=== PATIENT | female | born 2000 | race Caucasian/White ===

== ENCOUNTER 2022-03-10 09:04 | Outpatient (CLI) | payer OTHER, SELFPAY ==
[2022-03-10 15:42] LABS: GC DNA Amplified* NOT DETECTED (No Detected)
[2022-03-10 15:59] LABS: Chlamydia DNA Amplified* DETECTED (No Detected)
== END 2022-03-10 09:05 | disposition home or self-care (01) ==
PROVIDERS: Visit Provider Registered Nurse
DX: R35.0 Frequency of micturition (principal); N91.2 Amenorrhea, unspecified; Z31.41 Encounter for fertility testing
CPT/HCPCS: 87086; 87491; 87591

== ENCOUNTER 2022-05-08 15:36 | Emergency (ER) | payer SELFPAY ==
[2022-05-08 15:39] VITALS: BP 119/77; PULSE 90; RESP 18; TEMP 36.2; O2SAT 100; BMI 28.1
[2022-05-08 16:14] LABS: Appearance Urine Cloudy (Clear); Bilirubin Urine Negative (Negative); Blood Urine Negative (Negative); Color Urine Yellow (Yellow); Glucose Urine Negative (Negative); Ketones Urine Negative (Negative); Leukocyte Esterase Urine Negative (Negative); Nitrite Urine Negative (Negative); Protein Urine Negative (Negative); Specific Gravity Urine >= 1.030 (1.000-1.030); Urobilinogen Urine 0.2 (0.2-1.0); pH Urine 5.5 (5.0-8.5)
--- NOTE | 2022-05-08 16:17 | ED_ITS ---
HPI - SOB/Dyspnea General Date Seen: 05/08/22 Chief Complaint: Shortness of Breath/Dyspnea Stated Complaint: Shortness of Breath, Vomiting Time Seen by Provider: 05/08/22 15:36 Source: patient and family Mode of arrival: ambulatory Limitations: no limitations History of Present Illness HPI Narrative: Patient is a 22-year-old female presents here with the shortness of breath and 3 episodes of vomiting last 24 hours, she says she feels like she is does not have her normal air, she has had no fevers no chills, but does feels weak otherwise. She has a past history of asthma but does not use an inhaler she is on no chronic medications she has no known allergies. Denies any leg swelling, feeling of faintness, chest pain, abdominal discomfort, dysuria frequency fevers chills, or any other issues. 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 Took some [id number] cold medicines but really nothing else. She presents here. elicited complaint: shortness of breath Pertinent past history: asthma Onset (ago): day(s) Treatment prior to arrival: none Related Data Home oxygen amount: none Previous Rx's Medication Instructions Recorded doxycycline monohydrate 100 mg 100 mg PO BID #14 tabs 03/10/22 tablet Allergies Allergy/AdvReac Type Severity Reaction Status Date / Time No Known Drug Allergies Allergy Verified 05/08/22 15:42 Review of Systems Status of ROS: Reports: 10 or more systems reviewed and unremarkable except as noted in History and below [facility] Medical History Back pain Epistaxis Menorrhagia with irregular cycle Family History Mother Ovarian cancer Social History Smoking Status: Never smoker Do you use any of these nicotine containing products: None How often do you have a drink containing alcohol: never AUDIT-C Alcohol total score: 0 Non-prescribed substance use: denies use service: No Exam Narrative: Exam Narrative: Patient is seen in room 4, she is speaking to me entirely in full sentences, appears to be not short of breath at all, with normal vital signs. Patient is speaking normally, no problem with slurring words, oriented x3. Head eyes ears nose and throat exam show equal pupils, no scleral icterus, extraocular muscles are normal, no facial droop, speech is normal, trachea normal and midline. Thyroid normal midline palpable not enlarged. Chest shows symmetrical rise bilaterally, normal auscultation with no wheezes, no increased work of breathing, no overt bruising or lesions seen, no tenderness is noted on auscultation. Heart sounds normal with no S3-S4 no murmurs clicks or gallops. Abdomen shows no obvious masses or hepatosplenomegaly, no organomegaly, bowel sounds are normal in all quadrants. No tenderness is noted also in all quadrants. Upper and lower extremities show normal power, normal range of motion, pulses are normal, sensations normal, fine motor movements are normal, pelvis is stable to rocking. Cervical spine shows normal range of motion, and palpably not tender. Thoracic spine shows normal range of motion, and palpably not tender, lumbar spine shows no tenderness to palpation percussion and is otherwise normal range of motion. Skin shows no rashes, petechiae or eccymosis. Const: Vital Signs, click to edit/add: Vital Signs - 24 hr 05/08/22 15:39 Temperature 97.2 F L Pulse Rate [Pulse Oximeter] 90 Respiratory Rate 18 Blood Pressure [Ri ght Upper Arm] 119/77 Pulse Oximetry 100 Oxygen Delivery Me thod Room Air Documenting provider has reviewed patient's vital signs: yes Course Course Hospital Course: Patient's labs are reviewed with the patient, she is requesting to go home, explained to her D-dimer troponin white blood cell count and viral screens are all negative, we could do a chest x-ray now in or test is negative, she declined this intervention says she feels better and would like to leave, I will write her note for work for 24 hours and she can follow up with primary care otherwise back in the ER if any signs symptoms worsening, she was very comfortable with this. Vital Signs Vital signs: Initial Vital Signs Temperature 97.2 F L 05/08/22 15:39 Temperature Source Temporal Artery Scan 05/08/22 15:39 Pulse Rate 90 05/08/22 15:39 Pulse Rhythm 05/08/22 15:39 Pulse Strength 3+ Normal 05/08/22 15:39 Respiratory Rate 18 02/13/23 15:39 Blood Pressure 119/77 05/08/22 15:39 Blood Pressure Mean 91 05/08/22 15:39 Blood Pressure Position Sitting 05/08/22 15:39 Pulse Oximetry 100 05/08/22 15:39 Oxygen Delivery Method 05/08/22 15:39 Vital Signs Temperature 97.2 F L 05/08/22 15:39 Pulse Rate 90 05/08/22 15:39 Respiratory Rate 18 05/08/22 15:39 Blood Pressure 119/77 05/08/22 15:39 Pulse Oximetry 100 05/08/22 15:39 Oxygen Delivery Method 05/08/22 15:39 Temperature 97.2 F L 05/08/22 15:39 Pulse Rate 90 05/08/22 15:39 Respiratory Rate 18 05/08/22 15:39 Blood Pressure 119/77 05/08/22 15:39 Pulse Oximetry 100 05/08/22 15:39 Oxygen Delivery Method 05/08/22 15:39 MDM - SOB/Dyspnea MDM Narrative Medical decision making narrative: Life-threatening differential diagnosis includes occluded COPD exacerbation, pulmonary edema, acute coronary syndromes, pulmonary embolism, pneumonia, and pneumothorax. Other differential diagnosis considerations include asthma, b ronchitis as well as other etiologies Medical Records Attestation: I reviewed the patient's medical records. Lab Data Attestation: I reviewed the patient's lab results. Labs: Lab Results 05/08/22 05/08/22 05/08/22 Range/Units 15:55 16:04 16:20 WBC 6.64 (4.50-11.00) K/uL RBC 4.61 (4.00-5.20) m/uL Hgb 14.4 (12.0-16.0) gm/dL Hct 42.3 (33.0-51.0) % MCV 92 (80-100) fL MCH 31 (26-34) pg MCHC 34 (32-36) gm/dL RDW Coeff of [place] 12.3 (11.5-15.5) % Plt Count 230 (140-440) K/uL Neut % (Auto) 65.7 (42.0-72.0) % Lymph % (Auto) 25.2 (20-44) % [place] % (Auto) 7.4 (0.0-11.0) % Eos % (Auto) 1.4 (0.0-7.0) % Baso % (Auto) 0.3 (0.0-3.0) % Neut # (Auto) 4.37 (1.7-7.0) K/uL Lymph # (Auto) 1.67 (0.90-2.90) K/uL [place] # (Auto) 0.50 (0.00-0.90) K/UL Eos # (Auto) 0.09 (0.00-0.50) K/uL Baso # (Auto) 0.02 (0.00-0.30) K/uL D-Dimer Quant (PE/DVT) (0.00-0.50) ug/ml Sodium (135-149) mmol/L Potassium (3.6-5.1) mmol/L Chloride (96-114) mmol/L Carbon Dioxide (20-32) mmol/L BUN (5-24) mg/dL Creatinine (0.5-1.5) mg/dL Estimated Creat Clear Estimated GFR ml/min Glucose (60-115) mg/dL Calcium (8.4-10.6) mg/dL HCG, Qual (Negative) Urine Color Yellow (Yellow) Urine Appearance Cloudy A (Clear) Urine pH 5.5 (5.0-8.5) Ur Specific [place] >= 1.030 (1.000-1.030) Urine Protein Negative (Negative) Urine Glucose (UA) Negative (Negative) Urine Ketones Negative (Negative) Urine Blood Negative (Negative) Urine Nitrite Negative (Negative) Urine Bilirubin Negative (Negative) Urine Urobilinogen 0.2 (0.2-1.0) Ur Leukocyte Esterase Negative (Negative) Urine RBC 0-2 (0-2) Urine WBC 2-5 (0-5) Ur Squamous Epith Cells Few (None-Few) Urine Bacteria None (None) SARS-CoV-2 (PCR) Negative SARS-CoV-2 (Negative) Influenza Type A (PCR) Negative PCR FLU A (Negative) Influenza Type B (PCR) Negative PCR FLU B (Negative) RSV (PCR) Negative PCR RSV (Negative) POC Troponin I (0.01-0.04) ng/ml 05/08/22 05/08/22 05/08/22 Range/Units 16:20 16:20 16:20 WBC (4.50-11.00) K/uL RBC (4.00-5.20) m/uL Hgb (12.0-16.0) gm/dL Hct (33.0-51.0) % MCV (80-100) fL MCH (26-34) pg MCHC (32-36) gm/dL RDW Coeff of [place] (11.5-15.5) % Plt Count (140-440) K/uL Neut % (Auto) (42.0-72.0) % Lymph % (Auto) (20-44) % [place] % (Auto) (0.0-11.0) % Eos % (Auto) (0.0-7.0) % Baso % (Auto) (0.0-3.0) % Neut # (Auto) (1.7-7.0) K/uL Lymph # (Auto) (0.90-2.90) K/uL [place] # (Auto) (0.00-0.90) K/UL Eos # (Auto) (0.00-0.50) K/uL Baso # (Auto) (0.00-0.30) K/uL D-Dimer Quant (PE/DVT) 0.27 (0.00-0.50) ug/ml Sodium 140 (135-149) mmol/L Potassium 3.7 (3.6-5.1) mmol/L Chloride 112 (96-114) mmol/L Carbon Dioxide 22 (20-32) mmol/L BUN 11 (5-24) mg/dL Creatinine 0.6 (0.5-1.5) mg/dL Estimated Creat Clear 153.70 Estimated GFR 130 ml/min Glucose 83 (60-115) mg/dL Calcium 8.4 (8.4-10.6) mg/dL HCG, Qual Negative (Negative) Urine Color (Yellow) Urine Appearance (Clear) Urine pH (5.0-8.5) Ur Specific [place] (1.000-1.030) Urine Protein (Negative) Urine Glucose (UA) (Negative) Urine Ketones (Negative) Urine Blood (Negative) Urine Nitrite (Negative) Urine Bilirubin (Negative) Urine Urobilinogen (0.2-1.0) Ur Leukocyte Esterase (Negative) Urine RBC (0-2) Urine WBC (0-5) Ur Squamous Epith Cells (None-Few) Urine Bacteria (None) SARS-CoV-2 (PCR) (Negative) Influenza Type A (PCR) (Negative) Influenza Type B (PCR) (Negative) RSV (PCR) (Negative) POC Troponin I (0.01-0.04) ng/ml 05/08/22 Range/Units 16:20 WBC (4.50-11.00) K/uL RBC (4.00-5.20) m/uL Hgb (12.0-16.0) gm/dL Hct (33.0-51.0) % MCV (80-100) fL MCH (26-34) pg MCHC (32-36) gm/dL RDW Coeff of [place] (11.5-15.5) % Plt Count (140-440) K/uL Neut % (Auto) (42.0-72.0) % Lymph % (Auto) (20-44) % [place] % (Auto) (0.0-11.0) % Eos % (Auto) (0.0-7.0) % Baso % (Auto) (0.0-3.0) % Neut # (Auto) (1.7-7.0) K/uL Lymph # (Auto) (0.90-2.90) K/uL [place] # (Auto) (0.00-0.90) K/UL Eos # (Auto) (0.00-0.50) K/uL Baso # (Auto) (0.00-0.30) K/uL D-Dimer Quant (PE/DVT) (0.00-0.50) ug/ml Sodium (135-149) mmol/L Potassium (3.6-5.1) mmol/L Chloride (96-114) mmol/L Carbon Dioxide (20-32) mmol/L BUN (5-24) mg/dL Creatinine (0.5-1.5) mg/dL Estimated Creat Clear Estimated GFR ml/min Glucose (60-115) mg/dL Calcium (8.4-10.6) mg/dL HCG, Qual (Negative) Urine Color (Yellow) Urine Appearance (Clear) Urine pH (5.0-8.5) Ur Specific [place] (1.000-1.030) Urine Protein (Negative) Urine Glucose (UA) (Negative) Urine Ketones (Negative) Urine Blood (Negative) Urine Nitrite (Negative) Urine Bilirubin (Negative) Urine Urobilinogen (0.2-1.0) Ur Leukocyte Esterase (Negative) Urine RBC (0-2) Urine WBC (0-5) Ur Squamous Epith Cells (None-Few) Urine Bacteria (None) SARS-CoV-2 (PCR) (Negative) Influenza Type A (PCR) (Negative) Influenza Type B (PCR) (Negative) RSV (PCR) (Negative) POC Troponin I 0.00 L (0.01-0.04) ng/ml ECG Data Attestation: I personally reviewed and interpreted this ECG as follows: ECG interpretation date: 05/08/22 Interpretation: EKG shows normal sinus rhythm, with a ventricular rate of 68, QRS QT CO intervals are all normal. Discharge Plan Discharge Clinical Impression: Vomiting Patient Disposition: Home w/ Parent or Adult Condition: Improved Instructions: Acute Nausea and Vomiting (ED) Additional Instructions: Home rest Zofran as needed, if this continues I recommend follow-up with primary care in next 3-4 days, return if worsening symptoms, abdominal pain, chest pain, Activity Level: No Restrictions Discharge Diet: Regular Prescriptions: No Action doxycycline monohydrate 100 mg tablet 100 mg PO BID Qty: 14 0RF Follow Up/Referrals: Eagle Carmichael MD [Primary Care Provider] - Stand Alone Forms: [employer] Info Instructions
[2022-05-08] MEDS: ONDANSETRON 2 MG/ML inj 4 MG IVP (16:24)
[2022-05-08] MEDS: 0.9 % SODIUM CHLORIDE 1000 ml 1,000 ML IV (16:24)
[2022-05-08 16:36] LABS: Basophils Absolute Auto 0.02 K/uL (0.00-0.30); Basophils Percent Auto 0.3 % (0.0-3.0); Eosinophils Absolute Auto 0.09 K/uL (0.00-0.50); Eosinophils Percent Auto 1.4 % (0.0-7.0); Hematocrit 42.3 % (33.0-51.0); Hemoglobin* 14.4 gm/dL (12.0-16.0); Lymphocytes Absolute Auto 1.67 K/uL (0.90-2.90); Lymphocytes Percent Auto 25.2 % (20-44); Mean Corpuscular HGB Conc 34 gm/dL (32-36); Mean Corpuscular Hemoglobin 31 pg (26-34); Mean Corpuscular Volume 92 fL (80-100); Monocytes Percent Auto 7.4 % (0.0-11.0); Neutrophils Absolute Auto 4.37 K/uL (1.7-7.0); Neutrophils Percent Auto 65.7 % (42.0-72.0); Platelet Count* 230 K/uL (140-440); RDW Coefficient of Variation % 12.3 % (11.5-15.5); Red Blood Count 4.61 m/uL (4.00-5.20); White Blood Count* 6.64 K/uL (4.50-11.00)
[2022-05-08 16:43] LABS: Slide Review Reflex No
[2022-05-08 16:52] LABS: RBC Urine 0-2 (0-2)
[2022-05-08 16:53] LABS: Squamous Epithelial Cell Urine Few (None-Few)
[2022-05-08 16:55] LABS: Chloride* 112 mmol/L (96-114); Potassium* 3.7 mmol/L (3.6-5.1); Sodium* 140 mmol/L (135-149)
[2022-05-08 16:57] LABS: PCR FLU A Negative PCR FLU A (Negative); PCR FLU B Negative PCR FLU B (Negative); PCR RSV Negative PCR RSV (Negative)
[2022-05-08 16:58] LABS: SARS PCR* Negative SARS-CoV-2 (Negative)
[2022-05-08 16:58] LABS: Blood Urea Nitrogen* 11 mg/dL (5-24); Carbon Dioxide* 22 mmol/L (20-32); Creatinine* 0.6 mg/dL (0.5-1.5); Estimated Glomerular Filt Rate 130 ml/min; Glucose* 83 mg/dL (60-115)
[2022-05-08 16:59] LABS: Calcium* 8.4 mg/dL (8.4-10.6); D Dimer Quantitative* 0.27 ug/ml (0.00-0.50); HCG Qualitative* Negative (Negative)
== END 2022-05-08 17:38 | disposition home or self-care (01) ==
PROVIDERS: Emergency Provider Family Medicine; PCP Internal Medicine
DX: R11.10 Vomiting, unspecified (principal)
CPT/HCPCS: 36415; 80048; 81001; 84484; 84703; 85025; 85379; 87502; 87634; 87635; 93005; 96374; 99283; 99284; J2405; J7030

== ENCOUNTER 2022-09-15 12:11 | Emergency (ER) | payer SELFPAY ==
[2022-09-15 12:24] VITALS: BP 111/72; PULSE 71; RESP 18; TEMP 36.4; O2SAT 99; BMI 32.5
--- NOTE | 2022-09-15 12:52 | ED.FEMALEGU ---
HPI - Female Genitourinary General Time Seen by Provider: 12:52 Date Seen: 09/15/22 Chief complaint: Vaginal Bleeding Stated complaint: Colposcopy complications--losing blood Time Seen by Provider: 09/15/22 12:31 Source: patient and RN notes reviewed Mode of arrival: ambulatory Limitations: no limitations History of Present Illness HPI Narrative: Hector is a 22yo female coming into the ED with complaints of heavy vaginal bleeding that started this morning. She states that she is early by 4-5 days for her menstrual cycle and would never bleed this heavy. Has went through 4 panty liners already today. She cannot wear pads as she gets a rash from them and states that she had toxic shock from a tampon before. She had a colposcopy about [address] Pagan in clinic for abnormal PAP, she states the biopsies were normal. She did not experience any bleeding or significant discharge after the procedure. Today is the first day of bleeding for her. No fevers. Related Data Previous Rx's Medication Instructions Recorded doxycycline monohydrate 100 mg 100 mg PO BID #14 tabs 03/10/22 tablet Allergies Allergy/AdvReac Type Severity Reaction Status Date / Time No Known Drug Allergies Allergy Verified 09/10/22 09:51 [facility] Medical History (Updated 09/15/22 @ 14:59 by Alycia Dorsey MD) URI (upper respiratory infection) ?J06.9 - Acute upper respiratory infection, unspecified (ICD-10) Epistaxis ?R04.0 - Epistaxis (ICD-10) Menorrhagia with irregular cycle ?N92.1 - Excessive and frequent menstruation with irregular cycle (ICD-10) Back pain ?M54.9 - Dorsalgia, unspecified (ICD-10) Family History Mother Ovarian cancer Social History Smoking Status: Never smoker Do you use any of these nicotine containing products: None How often do you have a drink containing alcohol: never AUDIT-C Alcohol total score: 0 Non-prescribed substance use: denies use service: No Exam Const: Vital Signs, click to edit/add: Vital Signs - 24 hr 09/15/22 12:24 Temperature 97.5 F L Pulse Rate [Right Pulse Oximeter] 71 Respiratory Rate 18 Blood Pressure [Ri ght Upper Arm] 111/72 Pulse Oximetry 99 Oxygen Delivery Me thod Room Air Documenting provider has reviewed patient's vital signs: yes Common normals: no apparent distress, average body habitus, oriented x3, no limitations, healthy appearing, alert and well nourished General appearance: cooperative, comfortable, well kempt and well developed HENMT: Common normals: normocephalic, head/scalp atraumatic and hearing grossly normal bilaterally Head and scalp: normocephalic and atraumatic Eye: Common normals: PERRL, EOMs intact bilaterally, conjunctivae normal and no scleral icterus Conjunctiva: conjunctiva(e) normal Pupil: PERRL : Other: Blood coming from vaginal introitus. External structures normal without lesions. Vaginal mucosa has some overlying darker blood, some blood pooling inferior to cervix on speculum exam. Cervix appears normal without any bleeding sites, do some small trickle of dark blood coming from the cervical opening. Neuro: Common normals: oriented x3 Sensorium/orientation: alert Psych: Appearance: well kempt Course Course Hospital Course: Have reviewed with patient that I certainly do see bleeding that seems to be coming from the cervical on as, cannot delineate further where this is from. It certainly could be uterine bleeding. I do not have a procedural note to know if there are any endocervical sampling done. Have reviewed with her that I will likely talk to our OB Gyne career development consultant on-call for further recommendations. Reevaluation(s) Time of Reevaluation #1: 14:54 Reevaluation #1: Have reviewed with patient her ultrasound is not showing any abnormality. Her hemoglobin is stable. No . TSH is pending and will contact her with the results if it is abnormal. She understands that the core drilling supervisor does not believe this to be related to the colposcopy. This is very likely dysfunctional uterine bleeding. We discussed options. She does not want to do anything hormonal. I do think it is reasonable to just ride this out and allow this bleeding cycle to stop on its own. She does understand if the bleeding is not improving by next week, needs follow-up in clinic. If it is worsening at any point she may need to return to the ER. Will provider note to be off work for today and tomorrow so she can rest. She states she is just feeling tired. Consultations Consultation #1: Spoke with Dr. Memo BENZ Gyne on-call. Given that this colposcopies E was 10 days ago, she really does not think that it is at all likely to be bleeding from that. She states that usually will happen immediately. She would pursue investigation for dysfunctional uterine bleeding. Time: 13:00 Vital Signs Vital signs: Initial Vital Signs Temperature 97.5 F L 09/15/22 12:24 Temperature Source Temporal Artery Scan 09/15/22 12:24 Pulse Rate 71 09/15/22 12:24 Respiratory Rate 18 09/15/22 12:24 Blood Pressure 111/72 09/15/22 12:24 Blood Pressure Mean 85 09/15/22 12:24 Blood Pressure Position Sitting 09/15/22 12:24 Pulse Oximetry 99 09/15/22 12:24 Oxygen Delivery Method Room Air 09/15/22 12:24 Vital Signs Temperature 97.5 F L 09/15/22 12:24 Pulse Rate 71 09/15/22 12:24 Respiratory Rate 18 09/15/22 12:24 Blood Pressure 111/72 09/15/22 12:24 Pulse Oximetry 99 09/15/22 12:24 Oxygen Delivery Method Room Air 09/15/22 12:24 Temperature 97.5 F L 09/15/22 12:24 Pulse Rate 71 09/15/22 12:24 Respiratory Rate 18 09/15/22 12:24 Blood Pressure 111/72 09/15/22 12:24 Pulse Oximetry 99 09/15/22 12:24 Oxygen Delivery Method Room Air 09/15/22 12:24 MDM - Female Genitourinary Lab Data Attestation: I reviewed the patient's lab results. Labs: Lab Results 09/15/22 09/15/22 Range/Units 13:05 13:23 WBC 6.13 (4.50-11.00) K/uL RBC 4.76 (4.00-5.20) m/uL Hgb 14.4 (12.0-16.0) gm/dL Hct 42.5 (33.0-51.0) % MCV 89 (80-100) fL MCH 30 (26-34) pg MCHC 34 (32-36) gm/dL RDW Coeff of [place] 11.9 (11.5-15.5) % Plt Count 232 (140-440) K/uL Neut % (Auto) 69.4 (42.0-72.0) % Lymph % (Auto) 24.1 (20-44) % [place] % (Auto) 5.2 (0.0-11.0) % Eos % (Auto) 0.8 (0.0-7.0) % Baso % (Auto) 0.3 (0.0-3.0) % Neut # (Auto) 4.25 (1.7-7.0) K/uL Lymph # (Auto) 1.48 (0.90-2.90) K/uL [place] # (Auto) 0.30 (0.00-0.90) K/UL Eos # (Auto) 0.05 (0.00-0.50) K/uL Baso # (Auto) 0.02 (0.00-0.30) K/uL TSH 0.750 (0.270-4.200) uIU/mL HCG, Qual Negative (Negative) Lab Acknowledgement Test Added Imaging Data UA pelvis: Attestation: I have reviewed the pertinent imaging results. Radiologist's impression: Patient: [facility] Facility:?[facility] Patient ID:?[id number] Site Patient ID:?[id number]. Site :?[id number] Study:?US Pelvis -09/15/2022 1:51:03 PM Ordering Physician:?Sunita Tong Final Report: INDICATION: Dysfunctional uterine bleeding TECHNIQUE: Ultrasound pelvis transvaginal for better assessment or to better visualize the endometrium. Real-time sonographic images with spectral and color Doppler imaging of the ovaries were obtained. COMPARISON: None FINDINGS: Uterus: 7.1 x 4.2 x 3.9 cm. Normal echotexture of the myometrium. No masses. Retroverted. Endometrium: Transvaginal imaging was performed to better evaluate the endometrium. Endometrial thickness measures 8 mm. Small amount of fluid within the cervix. Minimal vascularity within the endometrium although without a measurable lesion. Right ovary measures 2.5 x 1.9 x 1.6 cm and left ovary measures 4.5 x 3.1 x 3.3 cm. Left ovarian simple cyst measuring 3.6 centimeters. Normal blood flow is demonstrated in both ovaries. Cul-de-sac: No significant free fluid. IMPRESSION: 1. Normal endometrial thickness of 8 millimeters although with some vascularity in the endometrium. No discrete measurable lesion identified. If clinically desired, sonohysterography may have improved characterization. 2. Normal bilateral ovarian blood flow with simple left ovarian cyst measuring 3.6 centimeters. Dictated by Jhon Young MD @ 09/15/2022 2:46:17 PM (Electronic Signature) Discharge Plan Discharge Clinical Impression: Dysfunctional uterine bleeding Patient Disposition: Home, Self-Care Condition: Stable Instructions: Abnormal (Dysfunctional) Uterine Bleeding (ED) Additional Instructions: Continue to monitor bleeding. Follow-up with primary care provider if it is not settling down next week. That any point the bleeding is worsening, becoming more symptomatic, do recommend re-evaluation here. Note provided to be off work today and tomorrow so that you can rest. I will contact you if the TSH, a thyroid test, should come back abnormal. If you do not hear from me you can know that this is normal. Activity Level: Activity as Tolerated Discharge Diet: Regular Prescriptions: No Action doxycycline monohydrate 100 mg tablet 100 mg PO BID Qty: 14 0RF Follow Up/Referrals: Eagle Carmichael MD [Staff Physician] - Stand Alone Forms: [employer] Info Instructions
--- NOTE | 2022-09-15 13:03 | CRLHL7_ITS ---
For Patients: As a result of the Century Cures Act, medical imaging exams and procedure reports are released immediately into your electronic medical record. You may view this report before your referring provider. If you have questions, please contact your health care provider. INDICATION: Dysfunctional uterine bleeding TECHNIQUE: Ultrasound pelvis transvaginal for better assessment or to better visualize the endometrium. Real-time sonographic images with spectral and color Doppler imaging of the ovaries were obtained. COMPARISON: None FINDINGS: Uterus: 7.1 x 4.2 x 3.9 cm. Normal echotexture of the myometrium. No masses. Retroverted. Endometrium: Transvaginal imaging was performed to better evaluate the endometrium. Endometrial thickness measures 8 mm. Small amount of fluid within the cervix. Minimal vascularity within the endometrium although without a measurable lesion. Right ovary measures 2.5 x 1.9 x 1.6 cm and left ovary measures 4.5 x 3.1 x 3.3 cm. Left ovarian simple cyst measuring 3.6 centimeters. Normal blood flow is demonstrated in both ovaries. Cul-de-sac: No significant free fluid. IMPRESSION: 1. Normal endometrial thickness of 8 millimeters although with some vascularity in the endometrium. No discrete measurable lesion identified. If clinically desired, sonohysterography may have improved characterization. 2. Normal bilateral ovarian blood flow with simple left ovarian cyst measuring 3.6 centimeters. Dictated by Jhon Young MD @ 09/15/2022 2:46:17 PM (Electronically Signed)
[2022-09-15 13:36] LABS: Basophils Percent Auto 0.3 % (0.0-3.0); Eosinophils Percent Auto 0.8 % (0.0-7.0); Hematocrit 42.5 % (33.0-51.0); Hemoglobin* 14.4 gm/dL (12.0-16.0); Lymphocytes Percent Auto 24.1 % (20-44); Mean Corpuscular HGB Conc 34 gm/dL (32-36); Mean Corpuscular Hemoglobin 30 pg (26-34); Mean Corpuscular Volume 89 fL (80-100); Monocytes Percent Auto 5.2 % (0.0-11.0); Neutrophils Percent Auto 69.4 % (42.0-72.0); Platelet Count* 232 K/uL (140-440); RDW Coefficient of Variation % 11.9 % (11.5-15.5); Red Blood Count 4.76 m/uL (4.00-5.20); White Blood Count* 6.13 K/uL (4.50-11.00)
[2022-09-15 13:37] LABS: Basophils Absolute Auto 0.02 K/uL (0.00-0.30); Eosinophils Absolute Auto 0.05 K/uL (0.00-0.50); Immature Granulocytes Abs Auto 0.01 K/uL (0.00-0.30); Immature Granulocytes Pct Auto 0.2 %; Lymphocytes Absolute Auto 1.48 K/uL (0.90-2.90); Neutrophils Absolute Auto 4.25 K/uL (1.7-7.0)
[2022-09-15 14:22] LABS: HCG Qualitative Serum* Negative (Negative)
[2022-09-15 14:43] LABS: Slide Review Reflex No
--- NOTE | 2022-09-15 15:16 | ED.NURSE ---
scant/minimal bleeding this ED visit
== END 2022-09-15 15:16 | disposition home or self-care (01) ==
PROVIDERS: Emergency Provider Family Medicine; PCP Family Medicine
DX: N93.8 Other specified abnormal uterine and vaginal bleeding (principal)
CPT/HCPCS: 36415; 76830; 84443; 84703; 85025; 93976; 99284

== ENCOUNTER 2023-06-18 08:53 | Emergency (ER) | payer OTHER, SELFPAY ==
[2023-06-18 08:58] VITALS: BP 127/78; PULSE 80; RESP 18; TEMP 36.1; O2SAT 100; BMI 32.5
[2023-06-18 09:18] LABS: Appearance Urine Slightly Cloudy (Clear); Bilirubin Urine Negative (Negative); Blood Urine Negative (Negative); Color Urine Light yellow (Yellow); Glucose Urine Negative (Negative); Ketones Urine Negative (Negative); Leukocyte Esterase Urine Trace (Negative); Nitrite Urine Negative (Negative); Protein Urine Negative (Negative); Urobilinogen Urine 0.2 (0.2-1.0); pH Urine 6.5 (5.0-8.5)
--- NOTE | 2023-06-18 09:31 | ED_ITS ---
HPI - Abdominal Pain General Time Seen by Provider: 09:32 Date Seen: 06/18/23 Chief Complaint: Abdominal Pain Stated Complaint: abdominal pain- 7 weeks preg. Time Seen by Provider: 06/18/23 09:31 Source: patient and RN notes reviewed Mode of arrival: ambulatory Limitations: no limitations History of Present Illness HPI narrative: This 23-year-old female that is 7 weeks today per report is coming in with some left lower abdominal pain. 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 It has come in termittently this morning. She does not have it now and has not had it for bit now. No associated nausea vomiting, no change in bowel habits. She has had no vaginal drainage or bleeding. She had her initial OB appointment 2 weeks ago in [place] at [place], had an ultrasound at that time. She states they only saw a gestational sac. She is having no morning sickness to date. Denies any urinary symptoms. She has not been sick with anything prior to this, no associated fevers or chills. This is her 1st . MD elicited complaint: abdominal pain Related Data Home Medications Medication Instructions Recorded Confirmed No Known Home Medications 04/18/23 04/18/23 Allergies Allergy/AdvReac Type Severity Reaction Status Date / Time No Known Drug Allergies Allergy Verified 04/18/23 11:49 Review of Systems Status of ROS Reports: 6 or more systems reviewed and unremarkable except as noted in History and below [facility] Medical History Menorrhagia with irregular cycle ?N92.1 - Excessive and frequent menstruation with irregular cycle (ICD-10) Back pain ?M54.9 - Dorsalgia, unspecified (ICD-10) Family History Mother Ovarian cancer Social History Smoking Status: Never smoker Do you use any of these nicotine containing products: None How often do you have a drink containing alcohol: never AUDIT-C Alcohol total score: 0 Non-prescribed substance use: denies use Little interest or pleasure in doing things: not at all Feeling down, depressed, or hopeless: not at all service: No Exam Const: Vital Signs, click to edit/add: Vital Signs - 24 hr 06/18/23 08:58 Temperature 97.0 F L Pulse Rate [Right Pulse Oximeter] 80 Respiratory Rate 18 Blood Pressure [Ri ght Upper Arm] 127/78 Pulse Oximetry 100 Oxygen Delivery Me thod Room Air This 23-year-old female is alert, interactive, no apparent distress. Sclera clear, face atraumatic, speaking in complete sentences, speech is normal. Lungs clear, good air entry, no wheezing or crackles. CV regular rate rhythm, no murmur, normal S1-S2, no S3-S4. Abdomen is soft, nontender, no organomegaly noted at this time, normal bowel sounds. She really has no tenderness on examination. She states the pain is gone at this time. Documenting provider has reviewed patient's vital signs: yes Course Course ED Course: Nursing staff collected urinalysis, do not think we need other labs at this moment. Will order a pelvic ultrasound, limited OB. Patient currently is stable, pain-free. Abdominal exam is quite benign. It sounds as if there was not concern of an ectopic prior. She is having no vaginal bleeding or discharge, pain resolved, hopeful that this is benign. Reevaluation(s) Time of Reevaluation #1: 10:29 Reevaluation #1: Checked on patient, she has not had any return of pain. She would like to go home, states she is tired. I do not have the ultrasound prelim report in certainly not the final yet. Time of Reevaluation #2: 10:39 Reevaluation #2: Have reviewed with the patient the preliminary report per the foreign exchange student coordinator. The ultrasound has not had formal reading by Radiology, patient does understand. There is an intrauterine , nothing overly concerning per the foreign exchange student coordinator. We will but this patient discharged to home, I will contact her in the event that something which show up concerning on final report from the radiologist but do not anticipate this. We reviewed urinalysis appears to be contaminated. Should she develop increasing abdominal pain, have this abdominal pain associated with vomiting or fever, would recommend re-evaluation. Any concerning changes with abdominal pain associated with should likewise cause her to seek re-evaluation. We have discussed this. Time of Reevaluation #3: 11:06 Reevaluation #3: Did call patient on the phone in let her know that the radiologist did read a small perigestational bleed or hemorrhage. Did review this. She is not experiencing any vaginal bleeding. Did discuss that that could happen with this. She will follow-up with OB as planned at the end of the week. Vital Signs Vital signs: Initial Vital Signs Temperature 97.0 F L 06/18/23 08:58 Temperature Source Temporal Artery Scan 06/18/23 08:58 Pulse Rate 80 06/18/23 08:58 Respiratory Rate 18 06/18/23 08:58 Blood Pressure 127/78 06/18/23 08:58 Blood Pressure Mean 94 06/18/23 08:58 Blood Pressure Position Sitting 06/18/23 08:58 Pulse Oximetry 100 06/18/23 08:58 Oxygen Delivery Method Room Air 06/18/23 08:58 Vital Signs Temperature 97.0 F L 06/18/23 08:58 Pulse Rate 80 06/18/23 08:58 Respiratory Rate 18 06/18/23 08:58 Blood Pressure 127/78 06/18/23 08:58 Pulse Oximetry 100 06/18/23 08:58 Oxygen Delivery Method Room Air 06/18/23 08:58 Temperature 97.0 F L 06/18/23 08:58 Pulse Rate 80 06/18/23 08:58 Respiratory Rate 18 06/18/23 08:58 Blood Pressure 127/78 06/18/23 08:58 Pulse Oximetry 100 06/18/23 08:58 Oxygen Delivery Method Room Air 06/18/23 08:58 MDM - Abdominal Pain Lab Data Attestation: I reviewed the patient's lab results. Lab results narrative: UA appears contaminated at this time. Labs: Lab Results 06/18/23 Range/Units 09:04 Urine Color Light yellow (Yellow) Urine Appearance Slightly Cloudy A (Clear) Urine pH 6.5 (5.0-8.5) Ur Specific Bowie 1.010 (1.000-1.030) Urine Protein Negative (Negative) Urine Glucose (UA) Negative (Negative) Urine Ketones Negative (Negative) Urine Blood Negative (Negative) Urine Nitrite Negative (Negative) Urine Bilirubin Negative (Negative) Urine Urobilinogen 0.2 (0.2-1.0) Ur Leukocyte Esterase Trace A (Negative) Urine RBC 0-2 (0-2) Urine WBC 2-5 (0-5) Ur Squamous Epith Cells Many A (None-Few) Urine Bacteria Moderate A (None) Imaging Data US pelvis: Attestation: I have reviewed the pertinent imaging results. Radiologist's impression: Patient: GENOVEVA FRANKLIN Facility:?[facility] Patient ID:?[id number] Site Patient ID:?[id number] Site :?[id number] Study:?US OB Pelvis TV-06/18/2023 10:38:48 AM Ordering Physician:?ED Final Report: INDICATION: Left lower quadrant pain during COMPARISON: None. TECHNIQUE: Grayscale, color Doppler ultrasound of the uterus and ovaries from a transvaginal and transabdominal approach. Transvaginal imaging was necessary for better visualization of both ovaries. FINDINGS: Currently provided gestational age 7 weeks and 0 days Normal uterine size and position. Gestational sac in the uterus with a mean sac diameter of 1.4 centimeters. Small normal yolk sac. Embryo present with a crown- rump length of 0.7 centimeters which corresponds to an estimated gestational age of 6 weeks and 4 days. Embryonic cardiac activity is present at a rate of 138 beats per minute. Small heterogeneously hypoechoic perigestational hemorrhage measuring 0.6 x 0.6 x 0.5 centimeters. The right ovary measures 3.2 x 2.4 x 2.1 centimeters. Small physiologic corpus luteum cyst. The left ovary measures 2.4 x 1.0 x 1.0 centimeters. No cyst or mass. No pelvic free fluid. IMPRESSION: Intrauterine gestation with an estimated gestational age of 6 weeks and 4 days based on the crown-rump length. Embryonic cardiac activity is present. Small perigestational hemorrhage. Continued follow-up is recommended. Dictated by Sarah Keller MD @ 06/18/2023 10:49:03 AM (Electronic Signature) Discharge Plan Discharge Clinical Impression: Abdominal pain of left lower quadrant during , antepartum Patient Disposition: Home, Self-Care Condition: Stable Instructions: Abdominal Pain in (ED) Additional Instructions: Keep your OB appointment for later this week as scheduled. If you develop any vaginal bleeding or significant discharge, have increased abdominal pain, have abdominal pain that is associated with fever or vomiting, need to seek re- evaluation for any of these symptoms. Can continue activity as tolerated, normal diet in the interim. Activity Level: Activity as Tolerated Discharge Diet: Regular Prescriptions: No Action No Known Home Medications Follow Up/Referrals: Eagle Carmichael MD [Staff Physician] - Stand Alone Forms: [employer] Info Instructions
[2023-06-18 09:33] LABS: Bacteria Urine Moderate; RBC Urine 0-2 (0-2); Squamous Epithelial Cell Urine Many (None-Few)
--- NOTE | 2023-06-18 09:36 | US_ITS ---
Patient: GENOVEVA FRANKLIN Facility:?[facility] Patient ID:?[id number] Site Patient ID:?[id number] Site :?[id number] Study:?US-OB Pelvis TV-06/18/2023 10:38:48 AM Ordering Physician:?ED Final Report: INDICATION: Left lower quadrant pain during COMPARISON: None. TECHNIQUE: Grayscale, color Doppler ultrasound of the uterus and ovaries from a transvaginal and transabdominal approach. Transvaginal imaging was necessary for better visualization of both ovaries. FINDINGS: Currently provided gestational age 7 weeks and 0 days Normal uterine size and position. Gestational sac in the uterus with a mean sac diameter of 1.4 centimeters. Small normal yolk sac. Embryo present with a crown- rump length of 0.7 centimeters which corresponds to an estimated gestational age of 6 weeks and 4 days. Embryonic cardiac activity is present at a rate of 138 beats per minute. Small heterogeneously hypoechoic perigestational hemorrhage measuring 0.6 x 0.6 x 0.5 centimeters. The right ovary measures 3.2 x 2.4 x 2.1 centimeters. Small physiologic corpus luteum cyst. The left ovary measures 2.4 x 1.0 x 1.0 centimeters. No cyst or mass. No pelvic free fluid. IMPRESSION: Intrauterine gestation with an estimated gestational age of 6 weeks and 4 days based on the crown-rump length. Embryonic cardiac activity is present. Small perigestational hemorrhage. Continued follow-up is recommended. Dictated by Sarah Keller MD @ 06/18/2023 10:49:03 AM Signed by:?Sarah Keller MD @06/18/2023 10:49:03 AM (Electronic Signature)
== END 2023-06-18 10:49 | disposition home or self-care (01) ==
PROVIDERS: Emergency Provider Family Medicine
DX: R10.32 Left lower quadrant pain (principal); Z3A.01 Less than 8 weeks gestation of pregnancy
CPT/HCPCS: 76817; 81001; 87086; 99283

== ENCOUNTER 2023-08-18 22:04 | Emergency (ER) | payer OTHER, SELFPAY ==
[2023-08-18 22:22] VITALS: BP 103/66; PULSE 64; RESP 16; TEMP 36.4; O2SAT 99; BMI 35.4
--- NOTE | 2023-08-18 22:55 | ED_ITS ---
HPI - General Adult General Time Seen by Provider: 22:55 Date Seen: 08/18/23 Chief complaint: Groin Pain Stated complaint: Strange bumps around her body, hurts and felipe Time Seen by Provider: 08/18/23 22:51 Source: patient and RN notes reviewed Mode of arrival: ambulatory History of Present Illness HPI narrative: This 23-year-old female is coming in with complaint of bumps noted in her right groin. They burn in there painful. They have maybe been present about 3 days. She is currently about 15 weeks . She has had no fevers or chills. No rash elsewhere. She does her OB care in [place] at [place]. Related Data Previous Rx's ?Medication ?Instructions ?Recorded valacyclovir 1 gram tablet 1,000 mg PO TID 7 days #20 tabs 08/18/23 Allergies Allergy/AdvReac Type Severity Reaction Status Date / Time No Known Drug Allergies Allergy Verified 04/18/23 11:49 Review of Systems Narrative: As per HPI. PFSH PFSH Medical History Menorrhagia with irregular cycle ?N92.1 - Excessive and frequent menstruation with irregular cycle (ICD-10) Back pain ?M54.9 - Dorsalgia, unspecified (ICD-10) Family History Mother Ovarian cancer Social History Smoking Status: Never smoker Do you use any of these nicotine containing products: None How often do you have a drink containing alcohol: never AUDIT-C Alcohol total score: 0 Non-prescribed substance use: denies use Little interest or pleasure in doing things: not at all Feeling down, depressed, or hopeless: not at all service: No Exam Const: Vital Signs, click to edit/add: Vital Signs - 24 hr 08/18/23 22:22 Temperature 97.5 F L Pulse Rate [Left P ulse Oximeter] 64 Respiratory Rate 16 Blood Pressure [Ri ght Upper Arm] 103/66 Pulse Oximetry 99 Oxygen Delivery Me thod Room Air Patient is alert, interactive, no apparent distress, ambulatory in ED of her own accord. She pulls up her shorts, shows me a rash in her left groin area. There are 2 areas of erythema with superimposed does vesicles on them. This is a dermatomal appearing rash that appears to be consistent with shingles. She has 2 small patches in the right groin. I cannot feel any adenopathy at this time. Documenting provider has reviewed patient's vital signs: yes Course Vital Signs Vital signs: Initial Vital Signs Temperature 97.5 F L 08/18/23 22:22 Temperature Source Temporal Artery Scan 08/18/23 22:22 Pulse Rate 64 08/18/23 22:22 Pulse Rhythm Regular 08/18/23 22:22 Respiratory Rate 16 08/18/23 22:22 Blood Pressure 103/66 08/18/23 22:22 Blood Pressure Mean 78 08/18/23 22:22 Blood Pressure Position Sitting 08/18/23 22:22 Pulse Oximetry 99 08/18/23 22:22 Oxygen Delivery Method Room Air 08/18/23 22:22 Vital Signs Temperature 97.5 F L 08/18/23 22:22 Pulse Rate 64 08/18/23 22:22 Respiratory Rate 16 08/18/23 22:22 Blood Pressure 103/66 08/18/23 22:22 Pulse Oximetry 99 08/18/23 22:22 Oxygen Delivery Method Room Air 08/18/23 22:22 Temperature 97.5 F L 08/18/23 22:22 Pulse Rate 64 08/18/23 22:22 Respiratory Rate 16 08/18/23 22:22 Blood Pressure 103/66 08/18/23 22:22 Pulse Oximetry 99 08/18/23 22:22 Oxygen Delivery Method Room Air 08/18/23 22:22 Discharge Plan Discharge Clinical Impression: Shingles Qualifiers: Herpes zoster complications: without complications Qualified Code(s): B02.9 - Zoster without complications Patient Disposition: Home, Self-Care Condition: Stable Instructions: Shingles (ED) Additional Instructions: Continue taking Valtrex 1 g 3 times a day for a total of 7 days. Can use Tylenol if needed for discomfort, follow bottle directions for dosing. Contact your regulatory and compliance technician on Sunday to update them regarding your diagnosis of shingles. Taking the Valtrex helps with suppressing further spread in development of the rash, can help prevent pain from this condition. Your rash can be contagious to people who have never had chickenpox such is unvaccinated children, can affect people who are immunocompromised such as patients chem otherapy. Activity Level: Activity as Tolerated Discharge Diet: Regular Prescriptions: New valacyclovir 1 gram tablet 1,000 mg PO TID 7 Days Qty: 20 0RF Follow Up/Referrals: Provider,Not a Local [Primary Care Provider] - Stand Alone Forms: [employer] Info Instructions
[2023-08-18] MEDS: VALACYCLOVIR HCL 500 MG TABLET 1000 MG PO (23:27)
== END 2023-08-18 23:30 | disposition home or self-care (01) ==
PROVIDERS: Emergency Provider Family Medicine
DX: B02.9 Zoster without complications (principal); Z3A.15 15 weeks gestation of pregnancy
CPT/HCPCS: 99282; A9270

== ENCOUNTER 2023-11-16 10:17 | Outpatient (CLI) | payer BC, SELFPAY | END 2023-11-16 10:18 | disposition home or self-care (01) | PROVIDERS: Visit Provider Physician Assistant | DX: Z34.93 Encounter for supervision of normal pregnancy, unspecified, third trimester (principal); Z3A.28 28 weeks gestation of pregnancy | CPT/HCPCS: 86592; 86762 ==

== ENCOUNTER 2024-01-21 17:38 | Outpatient (CLI) | payer BC, SELFPAY ==
[2024-01-21 17:57] VITALS: BP 121/71; PULSE 81; PULSE 85; PULSE 86; RESP 18; TEMP 36.7; O2SAT 94; O2SAT 95
--- NOTE | 2024-01-21 19:30 | PC.OBNST ---
NST Note NST Note Start: 01/21/24 17:50 Freq: ONCE Status: Discharge Protocol: Document 01/21/24 19:28 ABP (Rec: 01/21/24 19:29 ABP [id number]) NST Note 1 Para (# of births) 0 EDC 02/07/24 Gestational Age In Weeks & Days 37 Weeks & 4 Days Patient Presented with Complaint(s) of Contractions/cramping Reactive Yes RN Ismael Rivas RN Date 01/21/24 Reactive Yes LOU Knight RN Date 01/21/24 OB NST charge Yes Complete NST Note via Write Note Yes The provider's electronic signature indicates the NST is reactive/appropriate for gestational age. *Note to provider: If an addendum is required, open the patient's chart and click on the note under the Nurse/Allied Health tab.
== END 2024-01-21 19:29 | disposition home or self-care (01) ==
LOC: OB OUT 17:38 → OB 17:41
PROVIDERS: Visit Provider Obstetrics & Gynecology
DX: O47.1 False labor at or after 37 completed weeks of gestation (principal); Z3A.37 37 weeks gestation of pregnancy
CPT/HCPCS: 59025; G0463

== ENCOUNTER 2024-03-09 17:52 | Emergency (ER) | payer BC, SELFPAY ==
[2024-03-09 17:59] VITALS: BP 110/68; PULSE 73; RESP 16; TEMP 36.3; O2SAT 99; BMI 33.5
--- NOTE | 2024-03-09 18:39 | ED.FEMALEGU ---
HPI - Female Genitourinary General Time Seen by Provider: 18:40 Date Seen: 03/09/24 Chief complaint: Vaginal Bleeding Stated complaint: Post- bleeding Time Seen by Provider: 03/09/24 18:30 Source: patient and RN notes reviewed Mode of arrival: ambulatory Limitations: no limitations History of Present Illness HPI Narrative: This 24yo female is coming in accompanied by her mom with concern of bleeding. She had a at [facility] on January 31, had second degree tear repaired. She denies any blood pressure issues. Bleeding improved until this past week on March 06 started with heavier bleeding, passing some clots. Hurts in her vaginal area like right after having the baby, states that is in the area of the tear on questioning. No fevers. Has had some associated low back pain, felt dizzy and some headache. Has transferred her care here to [facility]. Is not breast feeding as she did not have milk. No contraceptives started. Related Data Allergies Allergy/AdvReac Type Severity Reaction Status Date / Time No Known Drug Allergies Allergy Verified 03/10/24 11:53 Review of Systems Status of ROS: Reports: 6 or more systems reviewed and unremarkable except as noted in History and below PFSH PFS Medical History Chlamydia ?A74.9 - Chlamydial infection, unspecified (ICD-10) Abnormal uterine bleeding ?N93.9 - Abnormal uterine and vaginal bleeding, unspecified (ICD-10) Dysfunctional uterine bleeding ?N93.8 - Other specified abnormal uterine and vaginal bleeding (ICD-10) Menorrhagia with irregular cycle ?N92.1 - Excessive and frequent menstruation with irregular cycle (ICD-10) Back pain ?M54.9 - Dorsalgia, unspecified (ICD-10) Family History Mother Ovarian cancer Social History Narrative: 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 Marital status: . Pentecostalism/cultural needs: no. Chemical or radiation exposure: no. Pre- tobacco use: no. Pre- alcohol use: no. Current tobacco use: no. Current alcohol use: no. Recreational drug use: no. Dietary restrictions: no. Blood transfusion acceptable in an emergency: yes. PSYCHOSOCIAL HISTORY: History of depression or currently depressed: no. Current or past physical, emotional, or sexual mistreatment: no. Problems that will make it hard to make it to appointments: no. What is your current living situation?: I presently have a place to live Problems where you live: no known problems In the past 12 months, utilities in danger of being shut off: no In the past 12 mos, have been you worried that your food would run out before you had money to buy more?: never true In the past 12 mos, the food you bought just didn't last and you didn't have money to buy more?: never true Smoking Status: Former smoker Do you use any of these nicotine containing products: None How often do you have a drink containing alcohol: never How often do you have six or more drinks on one occasion: Never AUDIT-C Alcohol total score: 0 Non-prescribed substance use: denies use How often does anyone, including family, friends and others, physically hurt you: never How often does anyone, including family, friends and others, insult or talk down to you: never How often does anyone, including family, friends and others, threaten you with harm: never How often does anyone, including family, friends and others, scream or curse at you: never service: No Exam Const: Vital Signs, click to edit/add: Vital Signs - 24 hr 03/09/24 17:59 Temperature 97.3 F L Pulse Rate [Right Pulse Oximeter] 73 Respiratory Rate 16 Blood Pressure [Ri ght Upper Arm] 110/68 Pulse Oximetry 99 Oxygen Delivery Me thod Room Air This 24-year-old female is coming in accompanied by her mom, she is alert, interactive, no apparent distress. Conjunctiva clear, pupils equal round reactive, speech is normal. Skin overall seems pale but no rash. Lungs are clear, good air entry, no wheezing or crackles. CV regular rate and rhythm, no murmur, normal S1-S2, no S3-S4. Abdomen is soft, nontender, nondistended, no uterine tenderness felt. There is certainly no rebound or guarding. Inspection of her perineum notes there to be irregular erythematous based lesion with coalesced clear vesicles on the left side of the mons pubis, this is tender, she tells me that she gets these bacterial infections, is nothing new. Her mom is in the room at this time and unfortunately do not feel like I can say more but I do have concerns that this looks to be consistent with herpes. External genitalia normal. There is dark blood at the introitus, cannot see anything other than some underlying mucosa that appears normal, do not see any significant swelling. Bimanual exam deferred at this point. She has no lower extremity edema. She was ambulatory into the ED of her own accord. Documenting provider has reviewed patient's vital signs: yes Course Course ED Course: Have reviewed with patient that history could be consistent with retained products of conception. We will do an ultrasound. We will get labs to see where her hemoglobin is at. 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 She is not febrile, doubt infection. Reevaluation(s) Time of Reevaluation #1: 21:01 Reevaluation #1: Have reviewed with patient that she will see 1 of the obstetricians terrell. She indeed does appear to have retained products of conception on ultrasound. She did eat at 4:00 p.m., making this unlikely to have surgery tonight. She does seem to be stable at this time. Will await their consult. Time of Reevaluation #2: 21:40 Reevaluation #2: Have reviewed the plan of care with patient. She is stable at this time. No concerning bleeding at this time, remains hemodynamically stable. Will allow her to discharge to home with follow up in clinic with OB tomorrow to get scheduled for surgery. Consultations Consultation #1: Have called Dr. Hampton regarding ultrasound report showing a probable retained products of conception in the right superior segment of the endometrium. Did also review the lesion seen on the mons pubis which I have not been able to talk to the patient privately about. She unfortunately will be going off call at 9:00 p.m. tonight, she is going to talk to the oncoming on-call Dr. Ramirez. One of them will be in to see the patient tonight. Patient last ate at 4:00 p.m. today, [employer]. They will decide if patient may go home tonight, when surgery will happen (likely tomorrow as patient is stable). Time: 20:54 Consultation #2: Have spoken with Dr. Ramirez from OB. This patient is stable here, do agree with follow up in clinic with them tomorrow. Will give her signs and symptoms for return overnight. They will work on getting an appropriate surgical time for her for the retained products of conception. Time: 21:12 Vital Signs Vital signs: Initial Vital Signs Temperature 97.3 F L 03/09/24 17:59 Temperature Source Temporal Artery Scan 03/09/24 17:59 Pulse Rate 73 03/09/24 17:59 Respiratory Rate 16 03/09/24 17:59 Blood Pressure 110/68 03/09/24 17:59 Blood Pressure Mean 82 03/09/24 17:59 Blood Pressure Position Sitting 03/09/24 17:59 Pulse Oximetry 99 03/09/24 17:59 Oxygen Delivery Method Room Air 03/09/24 17:59 Vital Signs Temperature 97.3 F L 03/09/24 17:59 Pulse Rate 73 03/09/24 17:59 Respiratory Rate 16 03/09/24 17:59 Blood Pressure 110/68 03/09/24 17:59 Pulse Oximetry 99 03/09/24 17:59 Oxygen Delivery Method Room Air 03/09/24 17:59 Temperature 97.3 F L 03/09/24 17:59 Pulse Rate 68 03/09/24 21:51 Respiratory Rate 18 03/09/24 21:51 Blood Pressure 120/72 03/09/24 21:51 Pulse Oximetry 99 03/09/24 21:51 Oxygen Delivery Method Room Air 03/09/24 21:51 MDM - Female Genitourinary Lab Data Attestation: I reviewed the patient's lab results. Lab results narrative: Hemoglobin in outside records was 9.4 on February 02 2024. Labs: Lab Results 03/09/24 Range/Units 19:35 WBC 7.35 (4.50-11.00) K/uL RBC 3.90 L (4.00-5.20) m/uL Hgb 10.9 L (12.0-16.0) gm/dL Hct 35.0 (33.0-51.0) % MCV 90 (80-100) fL MCH 28 (26-34) pg MCHC 31 L (32-36) gm/dL RDW Coeff of Marshall 13.1 (11.5-15.5) % Plt Count 290 (140-440) K/uL Neut % (Auto) 63.4 (42.0-72.0) % Lymph % (Auto) 28.4 (20-44) % Gibson % (Auto) 6.1 (0.0-11.0) % Eos % (Auto) 1.5 (0.0-7.0) % Baso % (Auto) 0.5 (0.0-3.0) % Neut # (Auto) 4.65 (1.7-7.0) K/uL Lymph # (Auto) 2.09 (0.90-2.90) K/uL Gibson # (Auto) 0.40 (0.00-0.90) K/UL Eos # (Auto) 0.11 (0.00-0.50) K/uL Baso # (Auto) 0.04 (0.00-0.30) K/uL Abs Immat Gran (auto) 0.01 (0.00-0.30) K/uL Imm/Tot Granulo (auto) 0.1 % Sodium 141 (135-149) mmol/L Potassium 3.8 (3.6-5.1) mmol/L Chloride 108 (96-114) mmol/L Carbon Dioxide 26 (20-32) mmol/L Anion Gap 7 (7-15) mEq/L BUN 12 (5-24) mg/dL Creatinine 0.8 (0.5-1.5) mg/dL Estimated Creat Clear 109.38 Estimated GFR 105 ml/min Glucose 98 (60-115) mg/dL Calcium 8.9 (8.4-10.6) mg/dL Total Bilirubin 0.2 (0.1-1.5) mg/dL AST 20 (12-35) U/L ALT 19 (4-35) U/L Alkaline Phosphatase 77 (40-150) U/L Total Protein 6.4 (6.0-8.3) g/dL Albumin 3.7 (3.3-5.0) g/dL Imaging Data US pelvis: Attestation: I have reviewed the pertinent imaging results. Radiologist's impression: Patient: GENOVEVA LA CRESCENTA Facility:?[facility] Patient ID:?[id number] Site Patient ID:?[id number]. Site :?[id number] Study:?US-Pelvis TRANSVAGINAL-03/09/2024 8:16:20 PM Ordering Physician:Alvin Tong Final Report: CLINICAL HISTORY: Worsening bleeding after delivery TECHNIQUE: Real time, tse scale images were acquired of the pelvis using a transabdominal and transvaginal approach. FINDINGS: The uterus appears unremarkable and measures 8.9 x 4.5 x 5.5 centimeters. Endometrium measures 3 millimeters however along the right fundal region there is thickening of the endometrium measuring 8 millimeters possible subtle minimal vascularity. The ovaries are not documented on this study. IMPRESSION: Midline endometrium measures 3 millimeters. The right fundal portion of the endometrium measures 8 millimeters question slight vascularity within the endometrium in the right fundal region raises possibility of retained products of conception. Dictated by Jaquelin Sosa MD @ 03/09/2024 8:53:46 PM (Electronic Signature) Discharge Plan Discharge Clinical Impression: Retained products of conception Patient Disposition: Home, Self-Care Condition: Stable Additional Instructions: Expect a phone call from [facility] tomorrow morning, if you do not hear from them by 10:00 a.m., call [phone]. Do recommend that you go to that appointment having fasted for at least 6hours in case they do decide to do surgery at that time. Otherwise, they will work on getting you scheduled for surgical appointment that is appropriate given your clinical situation. In the meantime, if you have increase in bleeding, or becoming more symptomatic from bleeding or develop fever, return to the ER. Activity Level: Activity as Tolerated Follow Up/Referrals: Provider,Not a Local [Non-Staff] - Stand Alone [facility]: [facility] Info Instructions
--- NOTE | 2024-03-09 19:17 | CRLHL7_ITS ---
For Patients: As a result of the Century Cures Act, medical imaging exams and procedure reports are released immediately into your electronic medical record. You may view this report before your referring provider. If you have questions, please contact your health care provider. CLINICAL HISTORY: Worsening bleeding after delivery TECHNIQUE: Real time, tse scale images were acquired of the pelvis using a transabdominal and transvaginal approach. FINDINGS: The uterus appears unremarkable and measures 8.9 x 4.5 x 5.5 centimeters. Endometrium measures 3 millimeters however along the right fundal region there is thickening of the endometrium measuring 8 millimeters possible subtle minimal vascularity. The ovaries are not documented on this study. IMPRESSION: Midline endometrium measures 3 millimeters. The right fundal portion of the endometrium measures 8 millimeters question slight vascularity within the endometrium in the right fundal region raises possibility of retained products of conception. Dictated by Jaquelin Sosa MD @ 03/09/2024 8:53:46 PM (Electronically Signed)
[2024-03-09 19:39] LABS: Basophils Absolute Auto 0.04 K/uL (0.00-0.30); Basophils Percent Auto 0.5 % (0.0-3.0); Eosinophils Absolute Auto 0.11 K/uL (0.00-0.50); Eosinophils Percent Auto 1.5 % (0.0-7.0); Hemoglobin* 10.9 gm/dL (12.0-16.0); Immature Granulocytes Abs Auto 0.01 K/uL (0.00-0.30); Immature Granulocytes Pct Auto 0.1 %; Lymphocytes Absolute Auto 2.09 K/uL (0.90-2.90); Lymphocytes Percent Auto 28.4 % (20-44); Mean Corpuscular HGB Conc 31 gm/dL (32-36); Mean Corpuscular Hemoglobin 28 pg (26-34); Mean Corpuscular Volume 90 fL (80-100); Monocytes Percent Auto 6.1 % (0.0-11.0); Neutrophils Absolute Auto 4.65 K/uL (1.7-7.0); Neutrophils Percent Auto 63.4 % (42.0-72.0); Platelet Count* 290 K/uL (140-440); RDW Coefficient of Variation % 13.1 % (11.5-15.5); White Blood Count* 7.35 K/uL (4.50-11.00)
[2024-03-09 19:40] LABS: Slide Review Reflex No
[2024-03-09 19:54] LABS: Albumin* 3.7 g/dL (3.3-5.0); Chloride* 108 mmol/L (96-114); Potassium* 3.8 mmol/L (3.6-5.1); Sodium* 141 mmol/L (135-149)
[2024-03-09 19:57] LABS: Alanine Aminotransferase* 19 U/L (4-35); Alkaline Phosphatase* 77 U/L (40-150); Anion Gap 7 mEq/L (7-15); Aspartate Amino Transferase* 20 U/L (12-35); Bilirubin Total* 0.2 mg/dL (0.1-1.5); Blood Urea Nitrogen* 12 mg/dL (5-24); Carbon Dioxide* 26 mmol/L (20-32); Creatinine* 0.8 mg/dL (0.5-1.5); Est. Creatinine Clearance* 109.38; Estimated Glomerular Filt Rate 105 ml/min; Glucose* 98 mg/dL (60-115); Total Protein* 6.4 g/dL (6.0-8.3)
[2024-03-09 19:58] LABS: Calcium* 8.9 mg/dL (8.4-10.6)
[2024-03-09 21:51] VITALS: BP 120/72; PULSE 68; RESP 18; O2SAT 99
== END 2024-03-09 21:58 | disposition home or self-care (01) ==
PROVIDERS: Emergency Provider Family Medicine; PCP Internal Medicine
DX: O73.1 Retained portions of placenta and membranes, without hemorrhage (principal)
CPT/HCPCS: 36415; 76830; 80053; 85025; 99284

== ENCOUNTER 2024-03-10 11:39 | Emergency (ER) | payer BC, SELFPAY ==
[2024-03-10 11:47] VITALS: BP 104/66; PULSE 66; RESP 16; TEMP 36.5; O2SAT 98; BMI 35.3
--- NOTE | 2024-03-10 12:22 | ED.GENADULT ---
HPI - General Adult General Date Seen: 03/10/24 Chief complaint: Vaginal Bleeding Stated complaint: post bleeding/headache Time Seen by Provider: 03/10/24 11:43 History of Present Illness HPI narrative: Patient is a 24-year-old who had a baby recently in [place]. Seen here yesterday for recurrent bleeding, she says that she had some bleeding for about a week after the baby and then had a period of time where she did not have problems with bleeding. She started bleeding again on the and has been bleeding continuously since then. Yesterday had hemoglobin of 10.9, an ultrasound which showed possible retained products, was assessed by OB and scheduled for an appointment in clinic today. She has an appointment at 1:[address] Noyola, presents to the ER at noon because of heavier bleeding. She and her mom say they were told if she had heavier bleeding she should come to the ER so that is what they did. She has no other complaints. Related Data Previous Rx's ?Medication ?Instructions ?Recorded methylergonovine 0.2 mg tablet 0.2 mg PO TID 2 days #6 tabs 03/10/24 Allergies Allergy/AdvReac Type Severity Reaction Status Date / Time No Known Drug Allergies Allergy Verified 03/10/24 11:53 Review of Systems Status of ROS: Reports: 10 or more systems reviewed and unremarkable except as noted in History and below PFSH ON LICENSE OF [facility] Medical History Chlamydia ?A74.9 - Chlamydial infection, unspecified (ICD-10) Abnormal uterine bleeding ?N93.9 - Abnormal uterine and vaginal bleeding, unspecified (ICD-10) Dysfunctional uterine bleeding ?N93.8 - Other specified abnormal uterine and vaginal bleeding (ICD-10) Menorrhagia with irregular cycle ?N92.1 - Excessive and frequent menstruation with irregular cycle (ICD-10) Back pain ?M54.9 - Dorsalgia, unspecified (ICD-10) Family History Mother Ovarian cancer Social History Narrative: 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 Marital status: . Jewish/cultural needs: no. Chemical or radiation exposure: no. Pre- tobacco use: no. Pre- alcohol use: no. Current tobacco use: no. Current alcohol use: no. Recreational drug use: no. Dietary restrictions: no. Blood transfusion acceptable in an emergency: yes. PSYCHOSOCIAL HISTORY: History of depression or currently depressed: no. Current or past physical, emotional, or sexual mistreatment: no. Problems that will make it hard to make it to appointments: no. What is your current living situation?: I presently have a place to live Problems where you live: no known problems In the past 12 months, utilities in danger of being shut off: no In the past 12 mos, have been you worried that your food would run out before you had money to buy more?: never true In the past 12 mos, the food you bought just didn't last and you didn't have money to buy more?: never true Smoking Status: Former smoker Do you use any of these nicotine containing products: None How often do you have a drink containing alcohol: never How often do you have six or more drinks on one occasion: Never AUDIT-C Alcohol total score: 0 Non-prescribed substance use: denies use How often does anyone, including family, friends and others, physically hurt you: never How often does anyone, including family, friends and others, insult or talk down to you: never How often does anyone, including family, friends and others, threaten you with harm: never How often does anyone, including family, friends and others, scream or curse at you: never service: No Exam Narrative: Exam Narrative: Vital signs reviewed In general, alert, nontoxic young woman. Head: Normocephalic, atraumatic. Eyes: Sclera clear. Pupils equal and reactive. ENT: Mucous membranes moist. Neck: Supple without adenopathy. Heart: Regular rate and rhythm without murmur. Lungs: Clear. No increased work of breathing, crackles or wheezes. Abdomen: Soft, nontender to palpation. : There was a small amount of blood at the introitus. I did not do a speculum exam. I swabbed this blood away and there was no recurrent accumulation of blood. Pad that she was wearing was clean. Extremities: Well perfused, pulses intact. No significant edema. Neurologic: Alert, conversant. Speech fluent, face symmetric. Moves all extremities equally. Skin: Warm, dry well perfused. Affect: Normal. Const: Vital Signs, click to edit/add: Vital Signs - 24 hr 03/10/24 11:47 Temperature 97.7 F Pulse Rate [Pulse Oximeter] 66 Respiratory Rate 16 Blood Pressure [Ri ght Upper Arm] 104/66 Pulse Oximetry 98 Oxygen Delivery Me thod Room Air Course Course ED Course: Care discussed with Dr. Holbrook, who is on-call today. She felt if bleeding was not excessive and hemoglobin was stable, that outpatient follow-up would still be appropriate. Will check a hemoglobin. I do not see significant bleeding at this time. Hemoglobin is 11.6 which is actually improved compared to yesterday. I think with the amount of bleeding am seeing and stable hemoglobin and vital signs it is certainly reasonable for her to be seen in OB [facility] clinic with follow-up at their discretion. She is comfortable with that. Discharged from the ER in stable condition. Vital Signs Vital signs: Initial Vital Signs Temperature 97.7 F 03/10/24 11:47 Temperature Source Temporal Artery Scan 03/10/24 11:47 Pulse Rate 66 03/10/24 11:47 Respiratory Rate 16 03/10/24 11:47 Blood Pressure 104/66 03/10/24 11:47 Blood Pressure Mean 78 03/10/24 11:47 Blood Pressure Position Sitting 03/10/24 11:47 Pulse Oximetry 98 03/10/24 11:47 Oxygen Delivery Method Room Air 03/10/24 11:47 Vital Signs Temperature 97.7 F 03/10/24 11:47 Pulse Rate 66 03/10/24 11:47 Respiratory Rate 16 03/10/24 11:47 Blood Pressure 104/66 03/10/24 11:47 Pulse Oximetry 98 03/10/24 11:47 Oxygen Delivery Method Room Air 03/10/24 11:47 Temperature 97.7 F 03/10/24 11:47 Pulse Rate 66 03/10/24 11:47 Respiratory Rate 16 03/10/24 11:47 Blood Pressure 104/66 03/10/24 11:47 Pulse Oximetry 98 03/10/24 11:47 Oxygen Delivery Method Room Air 03/10/24 11:47 Medications Administered Medications: Discontinued Medications Generic Name Dose Route Start Last Admin Trade Name Freq PRN Reason Stop Dose Admin Ibuprofen 400 mg 03/10/24 12:26 03/10/24 12:30 Ibuprofen 200 Mg Tablet PO 03/10/24 12:27 400 mg ONCE ONE Administration Medical Decision Making Lab Data Labs: Lab Results 03/10/24 Range/Units 12:17 Hgb 11.6 L (12.0-16.0) gm/dL Discharge Plan Discharge Clinical Impression: Retained products of conception Patient Disposition: Home, Self-Care Condition: Stable Additional Instructions: Your hemoglobin today is 11.6, up slightly from yesterday. You will likely need a D&C, which can be scheduled at your clinic visit today. Please follow-up with Dr. Alcaraz at 1:30 as scheduled. Prescriptions: No Action methylergonovine 0.2 mg tablet 0.2 mg PO TID 2 Days Qty: 6 0RF Follow Up/Referrals: Eagle Carmichael MD [Primary Care Provider] - Stand Alone Forms: [employer] Info Instructions
[2024-03-10 12:23] LABS: Hemoglobin* 11.6 gm/dL (12.0-16.0)
[2024-03-10] MEDS: IBUPROFEN 200 MG TABLET 400 MG PO (12:30)
== END 2024-03-10 12:41 | disposition home or self-care (01) ==
PROVIDERS: Emergency Provider Emergency Medicine; PCP Internal Medicine
DX: O72.2 Delayed and secondary postpartum hemorrhage (principal); R10.2 Pelvic and perineal pain
CPT/HCPCS: 36415; 84702; 85018; 87491; 87591; 99283; 99284; A9270

== ENCOUNTER 2024-12-18 12:48 | Outpatient (CLI) | payer BC, SELFPAY ==
--- NOTE | 2024-12-18 13:00 | CRLHL7_ITS ---
For Patients: As a result of the Century Cures Act, medical imaging exams and procedure reports are released immediately into your electronic medical record. You may view this report before your referring provider. If you have questions, please contact your health care provider. OB ULTRASOUND LESS THAN 14 WEEKS, 12/18/2024 CLINICAL HISTORY: Dating and viability. COMPARISON: None. TECHNIQUE: Grayscale and color Doppler ultrasound of the uterus and ovaries from a transabdominal and transvaginal approach. Transvaginal ultrasound of the pelvis was performed to better evaluate the genitourinary organs such as the ovaries and/or endometrium. FINDINGS: Imaging: Transvaginal. LMP: 10/18/2024. DERRELL by LMP: 07/25/2025. GA: 8 weeks 5 days. CRL: 8 weeks 5 days. DERRELL 07/25/2025. FHR: 184 bpm. GEST SAC: 2.5 cm, small in size. YOLK SAC: 3.7 mm, appears WNL. RIGHT OV: 2.3 x 1.5 x 1.2 cm, WNL. LEFT OV: 3.1 x 2.1 x 1.9 cm. WNL. CL. IMPRESSION: 1. Single living intrauterine measures 8 weeks 5 days with sonographic due date 07/25/2025. 2. Subchorionic hemorrhage measures 1.8 x 0.8 x 1.3 cm. Reggie Moss M.D. Diagnostic Radiologist [email or web address] Transcribed: 3:38 pm DW/Dictated by: Reggie Moss MD @ 12/18/2024 3:18:00 PM (Electronically Signed)
== END 2024-12-18 12:49 | disposition home or self-care (01) ==
LOC: US 12:49
PROVIDERS: PCP Internal Medicine; Visit Provider Physician Assistant
DX: O20.9 Hemorrhage in early pregnancy, unspecified (principal); Z3A.08 8 weeks gestation of pregnancy
CPT/HCPCS: 76817

== ENCOUNTER 2025-01-15 15:31 | Outpatient (CLI) | payer BC, SELFPAY | END 2025-01-15 15:32 | disposition home or self-care (01) | LOC: NFLDREF 01-17 19:31 | PROVIDERS: PCP Internal Medicine; Referring Provider Internal Medicine; Visit Provider Physician Assistant | DX: N39.41 Urge incontinence (principal) | CPT/HCPCS: 87086 ==

== ENCOUNTER 2025-03-13 11:05 | Outpatient (CLI) | payer BC, SELFPAY ==
--- NOTE | 2025-03-13 11:15 | CRLHL7_ITS ---
For Patients: As a result of the Century Cures Act, medical imaging exams and procedure reports are released immediately into your electronic medical record. You may view this report before your referring provider. If you have questions, please contact your health care provider. OB ULTRASOUND GREATER THAN 14 WEEKS CLINICAL HISTORY: screen. TECHNIQUE: Real time tse scale imaging of the fetus was performed. Transabdominal imaging performed. FINDINGS: LMP: 10/18/2024. DERRELL by LMP: 07/25/2025. GA: 20 weeks 6 days. Position: Breech. Cervix: Visualized. Technique: TA. Length of closed cervix: 3.2 cm. Placenta/Cord Placenta Position: Posterior. Placenta tip to internal OS: 7.8 cm. Umbilical Cord: 3 vessel cord. Placental Insertion: Central. Amniotic Fluid: 3.9 cm SDP. Observed Structures Calvarium/Spine Cerebellum: 2.3 cm, 22 weeks 3 days Cisterna Magna: 4.2 mm Nuchal Fold: 4.9 mm Lateral Ventricle: 6.0 mm CSP Choroid Plexus Midline Falx Abdomen: Stomach Abd Cord Insert Urinary Bladder Diaphragm Face: Nose/Lips Orbital View Profile Limbs: Upper Extremities Lower Extremities Hands Feet Vascular: LVOT RVOT 3VV 3VTV Biometry BPD: 4.9 cm, 20 weeks 6 days. 46% HC: 17.5 cm, 20 weeks 0 days. 11% AC: 17.0 cm, 22 weeks 0 days. 79% FL: 3.3 cm, 20 weeks 2 days. 24% FL/AC: 19.40% HC/AC Ratio: 1.03. Heart Rate: 161 bpm. Age by this US: 21 weeks 1 day. DERRELL by this US: 07/23/2025. EFW: 399 grams. 14 oz. Percentile by DERRELL: 58% IMPRESSION: Incomplete visualization of the 4 chamber heart. Remainder of the anatomic survey is normal. Short term follow-up recommended. Concordance of clinical and sonographic dating. Reggie Moss M.D. Diagnostic Radiologist [email or web address] Transcribed: 1:43 pm DW/Dictated by: Reggie Moss MD @ 03/13/2025 12:19:00 PM (Electronically Signed)
== END 2025-03-13 11:06 | disposition home or self-care (01) ==
LOC: US 11:06
PROVIDERS: PCP Internal Medicine; Visit Provider Obstetrics & Gynecology
DX: Z36.3 Encounter for antenatal screening for malformations (principal); O28.3 Abnormal ultrasonic finding on antenatal screening of mother; Z3A.20 20 weeks gestation of pregnancy
CPT/HCPCS: 76805